=== PATIENT | male | born 1970 | race Hispanic/Latino ===

== ENCOUNTER 2023-04-04 13:43 | Inpatient (IN) | payer OTHER ==
[~2023-04-04] VITALS: Ht 177.8 cm; Wt 115.2 kg
[2023-04-04 14:40] LABS: BASOPHILS # (AUTO) 0.1 (0.0-0.1); BASOPHILS % 1.2 % (0.0-1.0); EOSINOPHILS # (AUTO) 0.1 (0.0-0.4); EOSINOPHILS % 1.1 % (0.0-6.0); HEMATOCRIT 52.1 % (38.2-49.6); HEMOGLOBIN 17.6 g/dL (14.0-18.0); LYMPHOCYTES # (AUTO) 1.4 (1.0-3.2); LYMPHOCYTES % 15.7 % (18.0-39.1); MEAN CORPUSCULAR HEMOGLOBIN 27.1 pg (28-32); MEAN CORPUSCULAR HGB CONC 33.8 g/dL (31-35); MEAN CORPUSCULAR VOLUME 80.2 fL (81-99); MONOCYTES # (AUTO) 0.8 (0.2-0.8); MONOCYTES % 8.8 % (4.4-11.3); NEUTROPHILS # (AUTO) 6.6 (2.1-6.9); NEUTROPHILS % 72.5 % (38.7-80.0); PLATELET COUNT 188 x10e3/uL (140-360); RED CELL DISTRIBUTION WIDTH 18.6 % (11.7-14.4)
[2023-04-04 14:53] LABS: ALANINE AMINOTRANSFERASE 22 IU/L (0-55); ALBUMIN 2.8 g/dL (3.5-5.0); ALBUMIN/GLOBULIN RATIO 0.5 (0.8-2.0); ALKALINE PHOSPHATASE 229 IU/L (40-150); ANION GAP 16.8 mmol/L (8-16); BLOOD UREA NITROGEN 22 mg/dL (7-26); BUN/CREATININE RATIO 18 (6-25); CALCIUM 9.1 mg/dL (8.4-10.2); CARBON DIOXIDE 31 mmol/L (22-29); CHLORIDE 89 mmol/L (98-107); CREATINE KINASE 26 IU/L (30-200); CREATININE, SERUM 1.21 mg/dL (0.72-1.25); GLUCOSE 293 mg/dL (74-118); POTASSIUM 3.8 mmol/L (3.5-5.1); SODIUM 133 mmol/L (136-145)
[2023-04-04] MEDS ORDERED: Vancomycin IV 1 GM in SODIUM CHLORIDE 0.9% 250ML 250 ML IV ONE (15:30)
[2023-04-04] MEDS ORDERED: Morphine 2mg Syringe 2 MG/ML SYR IV PRN (15:45)
[2023-04-04] MEDS ORDERED: SODIUM CHLORIDE 0.9% 1000ML 1,000 ML IV SCH (15:45)
[2023-04-04] MEDS ORDERED: ONDANSETRON HCL INJ 2MG/ML 2ML 2 MG/ML VIAL IV PRN (15:45)
[2023-04-04 16:06] VITALS: PULSE 71; RESP 20; O2SAT 98
[2023-04-04] MEDS ORDERED: ISOSORBIDE MONO30 MG PO (17:54)
[2023-04-04] MEDS ORDERED: SYNJARDY XR 121 EACH PO (17:54)
[2023-04-04] MEDS ORDERED: LISINOPRIL20 MG PO (17:54)
[2023-04-04] MEDS ORDERED: METOLAZONE5 MG PO (17:54)
[2023-04-04] MEDS ORDERED: CARVEDILOL6.25 MG PO (17:54)
[2023-04-04] MEDS ORDERED: ATORVASTATIN CA10 MG PO (17:54)
[2023-04-04] MEDS ORDERED: FUROSEMIDE40 MG PO (17:54)
[2023-04-04 17:57] VITALS: BP 119/91; PULSE 71; RESP 20; O2SAT 99
[2023-04-04 18:02] VITALS: BP 119/91; PULSE 71; RESP 20; O2SAT 99
[2023-04-04 18:03] VITALS: BP 135/97; PULSE 97; RESP 20; TEMP 97.7; O2SAT 96
[2023-04-04] MEDS ORDERED: VITAMIN D PO (18:28)
[2023-04-04 20:00] VITALS: BP 129/92; PULSE 95; RESP 16; TEMP 98.4; O2SAT 96
[2023-04-04] MEDS ORDERED: DEXTROSE 50% SYRINGE 50 ML IV PRN (21:00)
[2023-04-04] MEDS ORDERED: FAMOTIDINE 20 MG TAB PO PRN (21:45)
[2023-04-04] MEDS ORDERED: ACETAMINOPHEN 325 MG TAB PO PRN (21:45)
[2023-04-04] MEDS ORDERED: HYDRALAZINE HCL 20 MG/ML VIAL IV PRN (21:45)
[2023-04-04] MEDS ORDERED: MELATONIN 5 MG TABLET PO PRN (21:45)
[2023-04-04] MEDS ORDERED: Vancomycin IV 1.25 GM in SODIUM CHLORIDE 0.9% 250ML 250 ML IV SCH (22:00)
[2023-04-04] MEDS: CEFEPIME 2 GM in SODIUM CHLORIDE 0.9% 100 ML IV SCH (22:58)
[2023-04-04] MEDS: CARVEDILOL 12.5 MG TAB PO SCH (22:59)
[2023-04-04] MEDS: INSULIN REGULAR, HUMAN 100 UNIT/1 ML SQ SCH (23:02)
[2023-04-05] VITALS (10 sets, daily range): BP systolic 86–120; BP diastolic 57–91; PULSE 72–92; RESP 16–18; TEMP 97.4–98.4; O2SAT 95–100
[2023-04-05 04:50] LABS: BASOPHILS # (AUTO) 0.1 (0.0-0.1); EOSINOPHILS # (AUTO) 0.1 (0.0-0.4); EOSINOPHILS % 1.6 % (0.0-6.0); HEMATOCRIT 47.8 % (38.2-49.6); HEMOGLOBIN 15.8 g/dL (14.0-18.0); LYMPHOCYTES # (AUTO) 1.4 (1.0-3.2); LYMPHOCYTES % 17.2 % (18.0-39.1); MEAN CORPUSCULAR HEMOGLOBIN 26.6 pg (28-32); MEAN CORPUSCULAR HGB CONC 33.1 g/dL (31-35); MEAN CORPUSCULAR VOLUME 80.5 fL (81-99); MONOCYTES # (AUTO) 0.7 (0.2-0.8); MONOCYTES % 8.3 % (4.4-11.3); NEUTROPHILS # (AUTO) 5.8 (2.1-6.9); NEUTROPHILS % 71.3 % (38.7-80.0); PLATELET COUNT 180 x10e3/uL (140-360); RED BLOOD COUNT 5.94 x10e6/uL (4.3-5.7); RED CELL DISTRIBUTION WIDTH 18.4 % (11.7-14.4)
[2023-04-05 05:10] LABS: ALBUMIN 2.5 g/dL (3.5-5.0); ALBUMIN/GLOBULIN RATIO 0.5 (0.8-2.0); ANION GAP 15.6 mmol/L (8-16); CALCIUM 8.5 mg/dL (8.4-10.2); CREATININE, SERUM 1.12 mg/dL (0.72-1.25); POTASSIUM 3.6 mmol/L (3.5-5.1)
[2023-04-05 05:27] LABS: MAGNESIUM 1.4 MG/DL (1.3-2.1); PHOSPHORUS 3.9 MG/DL (2.3-4.7)
[2023-04-05] MEDS: Vancomycin IV 1.25 GM in SODIUM CHLORIDE 0.9% 250ML 250 ML IV SCH ×2 (06:22→18:11)
[2023-04-05] MEDS: INSULIN REGULAR, HUMAN 100 UNIT/1 ML SQ SCH ×4 (07:30→21:15)
[2023-04-05] MEDS: CEFEPIME 2 GM in SODIUM CHLORIDE 0.9% 100 ML IV SCH ×2 (08:01→21:15)
[2023-04-05] MEDS: ISOSORBIDE MONONITRATE 30 MG TAB CR PO SCH (08:01)
[2023-04-05] MEDS: SENNA-S TABLET PO SCH (08:02)
[2023-04-05] MEDS: ATORVASTATIN 10 MG TAB PO SCH (08:02)
[2023-04-05] MEDS: LISINOPRIL 20 MG TAB PO SCH (08:02)
[2023-04-05] MEDS: METOLAZONE 5 MG TAB PO SCH (08:02)
[2023-04-05] MEDS: CARVEDILOL 12.5 MG TAB PO SCH ×2 (08:05→21:16)
[2023-04-05] MEDS: ENOXAPARIN SOD INJ 40 MG/0.4 ML SYR SC SCH (17:00)
[2023-04-06] VITALS (8 sets, daily range): BP systolic 99–132; BP diastolic 66–98; PULSE 61–87; RESP 17–20; TEMP 97.7–98.6; O2SAT 96–100
[2023-04-06 04:50] LABS: BASOPHILS # (AUTO) 0.1 (0.0-0.1); BASOPHILS % 1.4 % (0.0-1.0); EOSINOPHILS # (AUTO) 0.2 (0.0-0.4); HEMATOCRIT 47.7 % (38.2-49.6); HEMOGLOBIN 15.7 g/dL (14.0-18.0); LYMPHOCYTES # (AUTO) 1.6 (1.0-3.2); MEAN CORPUSCULAR HEMOGLOBIN 26.4 pg (28-32); MEAN CORPUSCULAR HGB CONC 32.9 g/dL (31-35); MEAN CORPUSCULAR VOLUME 80.3 fL (81-99); MONOCYTES # (AUTO) 0.5 (0.2-0.8); MONOCYTES % 8.1 % (4.4-11.3); NEUTROPHILS % 62.2 % (38.7-80.0); PLATELET COUNT 156 x10e3/uL (140-360); RED BLOOD COUNT 5.94 x10e6/uL (4.3-5.7)
[2023-04-06 05:09] LABS: ALBUMIN 2.6 g/dL (3.5-5.0); ALBUMIN/GLOBULIN RATIO 0.6 (0.8-2.0); ANION GAP 15.7 mmol/L (8-16); CALCIUM 8.4 mg/dL (8.4-10.2); CREATININE, SERUM 1.29 mg/dL (0.72-1.25); POTASSIUM 3.7 mmol/L (3.5-5.1)
[2023-04-06] MEDS: Vancomycin IV 1.25 GM in SODIUM CHLORIDE 0.9% 250ML 250 ML IV SCH (07:26)
[2023-04-06] MEDS: INSULIN REGULAR, HUMAN 100 UNIT/1 ML SQ SCH ×4 (07:30→21:53)
[2023-04-06] MEDS: SENNA-S TABLET PO SCH (09:00)
[2023-04-06] MEDS: ATORVASTATIN 10 MG TAB PO SCH (09:00)
[2023-04-06] MEDS: ISOSORBIDE MONONITRATE 30 MG TAB CR PO SCH (09:00)
[2023-04-06] MEDS: LISINOPRIL 20 MG TAB PO SCH (09:00)
[2023-04-06] MEDS: METOLAZONE 5 MG TAB PO SCH (09:00)
[2023-04-06] MEDS: CARVEDILOL 12.5 MG TAB PO SCH ×2 (09:45→21:47)
[2023-04-06] MEDS: CEFEPIME 2 GM in SODIUM CHLORIDE 0.9% 100 ML IV SCH ×2 (10:13→21:45)
[2023-04-06] MEDS ORDERED: POVIDONE IODINE 0.05% 0.05 % ML PO ONE (12:03)
[2023-04-06] MEDS ORDERED: SEVOFLURANE INHAL SOLN 250 ML PEN BTL ONE (12:03)
[2023-04-06] MEDS ORDERED: KETOROLAC TROMETHAMINE 30 MG/ML VIAL ONE (12:03)
[2023-04-06] MEDS ORDERED: ETOMIDATE 2 MG/ML 10 ML INJ IV ONE (12:03)
[2023-04-06] MEDS ORDERED: METOCLOPRAMIDE HCL 10 MG/2ML VIAL ONE (12:03)
[2023-04-06] MEDS ORDERED: PROPOFOL IV EMULSION 10 MG/ML 20 ML VIAL ONE (12:03)
[2023-04-06] MEDS ORDERED: ONDANSETRON HCL INJ 2MG/ML 2ML 2 MG/ML VIAL ONE (12:03)
[2023-04-06] MEDS ORDERED: SODIUM CHLORIDE 0.9% 1000ML 1,000 ML IV SCH (12:30)
[2023-04-06] MEDS ORDERED: LIDOCAINE HCL/EPINEPHRINE/PF 10 ML VIAL ONE (14:22)
[2023-04-06] MEDS ORDERED: BUPIVACAINE 0.5%/EPI 30 ML SDV INJ ONE (14:22)
[2023-04-06] MEDS ORDERED: BUPIVACAINE HCL 0.5% INJ 30 ML VIAL INJ ONE (14:23)
[2023-04-06] MEDS ORDERED: KETAMINE 50MG/5ML SYR ONE (14:26)
[2023-04-06] MEDS: ENOXAPARIN SOD INJ 40 MG/0.4 ML SYR SC SCH (17:36)
[2023-04-06] MEDS: HYDROCODONE/APAP 7.5MG-325MG 1 EA TAB PO PRN (17:36)
[2023-04-06] MEDS: Vancomycin IV 1 GM in SODIUM CHLORIDE 0.9% 250ML 250 ML IV SCH (17:38)
[2023-04-07 00:19] VITALS: BP 108/84; PULSE 80; RESP 18; TEMP 98.3; O2SAT 98
[2023-04-07 04:43] VITALS: BP 104/80; PULSE 72; RESP 18; TEMP 97.5; O2SAT 100
[2023-04-07] MEDS: Vancomycin IV 1 GM in SODIUM CHLORIDE 0.9% 250ML 250 ML IV SCH (05:16)
[2023-04-07] MEDS: HYDROCODONE/APAP 7.5MG-325MG 1 EA TAB PO PRN (05:23)
[2023-04-07] MEDS: INSULIN REGULAR, HUMAN 100 UNIT/1 ML SQ SCH ×2 (07:30→12:08)
[2023-04-07 08:10] VITALS: BP 103/86; PULSE 70; RESP 20; TEMP 97.7; O2SAT 98
[2023-04-07] MEDS ORDERED: FUROSEMIDE 40 MG TAB PO SCH (09:00)
[2023-04-07] MEDS: CEFEPIME 2 GM in SODIUM CHLORIDE 0.9% 100 ML IV SCH (09:03)
[2023-04-07] MEDS: ISOSORBIDE MONONITRATE 30 MG TAB CR PO SCH (09:04)
[2023-04-07] MEDS: SENNA-S TABLET PO SCH (09:04)
[2023-04-07] MEDS: ATORVASTATIN 10 MG TAB PO SCH (09:04)
[2023-04-07 09:15] VITALS: BP 103/86; PULSE 70; RESP 20; TEMP 97.7; O2SAT 98
[2023-04-07 10:30] LABS: BASOPHILS # (AUTO) 0.1 (0.0-0.1); BASOPHILS % 1.6 % (0.0-1.0); EOSINOPHILS # (AUTO) 0.1 (0.0-0.4); HEMATOCRIT 50.1 % (38.2-49.6); HEMOGLOBIN 16.2 g/dL (14.0-18.0); LYMPHOCYTES # (AUTO) 1.3 (1.0-3.2); LYMPHOCYTES % 22.8 % (18.0-39.1); MEAN CORPUSCULAR HEMOGLOBIN 26.4 pg (28-32); MEAN CORPUSCULAR HGB CONC 32.3 g/dL (31-35); MEAN CORPUSCULAR VOLUME 81.7 fL (81-99); MONOCYTES # (AUTO) 0.5 (0.2-0.8); MONOCYTES % 8.2 % (4.4-11.3); NEUTROPHILS # (AUTO) 3.6 (2.1-6.9); NEUTROPHILS % 64.7 % (38.7-80.0); PLATELET COUNT 145 x10e3/uL (140-360); RED BLOOD COUNT 6.13 x10e6/uL (4.3-5.7); RED CELL DISTRIBUTION WIDTH 18.6 % (11.7-14.4)
[2023-04-07 11:21] LABS: ALBUMIN 2.6 g/dL (3.5-5.0); ALBUMIN/GLOBULIN RATIO 0.6 (0.8-2.0); ANION GAP 14.3 mmol/L (8-16); CALCIUM 8.5 mg/dL (8.4-10.2); CREATININE, SERUM 1.34 mg/dL (0.72-1.25); POTASSIUM 4.3 mmol/L (3.5-5.1)
[2023-04-07 11:42] VITALS: BP 121/95; PULSE 73; RESP 20; TEMP 97.8; O2SAT 96
[2023-04-07] MEDS ORDERED: HYDROCODON-ACE1 EA12 PO (11:48)
[2023-04-07] MEDS ORDERED: DOXYCYCLINE HY100 M3 PO (11:48)
[2023-04-07] MEDS ORDERED: CEPHALEXIN500 MG PO (11:55)
[2023-04-07] MEDS: CARVEDILOL 12.5 MG TAB PO SCH (12:08)
[2023-04-07] MEDS: LISINOPRIL 20 MG TAB PO SCH (12:08)
[2023-04-07] MEDS ORDERED: ONDANSETRON HCL 4 MG ORAL DISINTEGRATING TAB PO PRN (14:15)
[2023-04-11] MEDS ORDERED: NON-FORMULARY MEDICATION ([Vitamin D] 50,000 UNITS) PO SCH (09:00)
== END 2023-04-07 13:50 | disposition home or self-care (01) | DRG 580 ==
LOC: ER 13:59 → ERHOLD 15:46 → MED/SURG 17:52
PROVIDERS: ADMIT Family Medicine Adult Medicine; ATTEND Family Medicine Adult Medicine
PROC: 0KBT0ZZ Excision of Left Lower Leg Muscle, Open Approach (ICD-10-PCS; principal; 2023-04-06 14:35)
DX: L03.116 Cellulitis of left lower limb (principal); I50.22 Chronic systolic (congestive) heart failure; L02.416 Cutaneous abscess of left lower limb; E66.01 Morbid (severe) obesity due to excess calories; Z68.30 Body mass index [BMI] 30.0-30.9, adult; I89.0 Lymphedema, not elsewhere classified; I11.0 Hypertensive heart disease with heart failure; D17.9 Benign lipomatous neoplasm, unspecified; E78.5 Hyperlipidemia, unspecified; E11.65 Type 2 diabetes mellitus with hyperglycemia; K74.60 Unspecified cirrhosis of liver; Z20.822 Contact with and (suspected) exposure to COVID-19
CPT/HCPCS: 0223U; 36415; 76705; 80053; 80202; 82550; 82948; 83735; 83880; 84100; 84484; 85025; 86140; 87040; 87071; 87075; 87186; 87205; 93005; 94799; 99252; 99284; J0692; J1650; J1885; J2270; J2405; J2543; J2765; J7030; J7050

== ENCOUNTER → 2023-04-13 | Outpatient (CLI) | payer OTHER ==
[~2023-04-13] MED LIST: ATORVASTATIN CA10 MG PO; CARVEDILOL6.25 MG PO; CEPHALEXIN500 MG PO; DOXYCYCLINE HY100 M3 PO; FUROSEMIDE40 MG PO; HYDROCODON-ACE1 EA12 PO; ISOSORBIDE MONO30 MG PO; LISINOPRIL20 MG PO; METOLAZONE5 MG PO; SYNJARDY XR 121 EACH PO; VITAMIN D PO
== END ==
LOC: WCC 08:00
PROVIDERS: ATTEND Internal Medicine Infectious Disease
DX: T81.89XA Other complications of procedures, not elsewhere classified, initial encounter (principal); L03.116 Cellulitis of left lower limb; I87.311 Chronic venous hypertension (idiopathic) with ulcer of right lower extremity; L97.811 Non-pressure chronic ulcer of other part of right lower leg limited to breakdown of skin; S80.811A Abrasion, right lower leg, initial encounter; S80.812A Abrasion, left lower leg, initial encounter; I87.2 Venous insufficiency (chronic) (peripheral); R60.0 Localized edema

== ENCOUNTER 2023-09-26 23:07 | Inpatient (IN) | payer OTHER ==
[~2023-09-26] VITALS: Ht 177.8 cm; Wt 122.5 kg
[2023-09-27] VITALS (12 sets, daily range): BP systolic 92–127; BP diastolic 69–96; PULSE 64–116; RESP 16–20; TEMP 97.5–97.8; O2SAT 95–100
[2023-09-27 00:08] LABS: BASOPHILS # (AUTO) 0.1 (0.0-0.1); BASOPHILS % 1.3 % (0.0-1.0); EOSINOPHILS # (AUTO) 0.1 (0.0-0.4); EOSINOPHILS % 0.9 % (0.0-6.0); HEMATOCRIT 53.4 % (38.2-49.6); HEMOGLOBIN 17.4 g/dL (14.0-18.0); LYMPHOCYTES # (AUTO) 1.3 (1.0-3.2); LYMPHOCYTES % 14.5 % (18.0-39.1); MEAN CORPUSCULAR HEMOGLOBIN 26.6 pg (28-32); MEAN CORPUSCULAR HGB CONC 32.6 g/dL (31-35); MEAN CORPUSCULAR VOLUME 81.8 fL (81-99); MONOCYTES # (AUTO) 0.7 (0.2-0.8); NEUTROPHILS # (AUTO) 6.5 (2.1-6.9); PLATELET COUNT 170 x10e3/uL (140-360); RED BLOOD COUNT 6.53 x10e6/uL (4.3-5.7); WHITE BLOOD COUNT 8.62 x10e3/uL (4.8-10.8)
[2023-09-27 00:49] LABS: ALBUMIN/GLOBULIN RATIO 0.7 (0.8-2.0); ANION GAP 18.5 mmol/L (8-16); BILIRUBIN,TOTAL 3.6 mg/dL (0.2-1.2); CREATININE, SERUM 2.02 mg/dL (0.72-1.25); POTASSIUM 4.5 mmol/L (3.5-5.1); TOTAL PROTEIN 7.5 g/dL (6.5-8.1)
[2023-09-27 01:07] LABS: TROPONIN I 0.057 ng/mL (0-0.300)
[2023-09-27] MEDS ORDERED: SODIUM CHLORIDE FLUSH 10 ML SYR INJ PRN (01:30)
[2023-09-27] MEDS ORDERED: ONDANSETRON HCL INJ 2MG/ML 2ML 2 MG/ML VIAL IV PRN (01:30)
[2023-09-27] MEDS ORDERED: Morphine 4mg INJECTION 4 MG/ML INJ IV PRN (01:30)
[2023-09-27] MEDS: FUROSEMIDE INJ 10 MG/ML 4 ML VIAL IV SCH ×4 (02:35→22:01)
[2023-09-27] MEDS ORDERED: POLYETHYLENE GLYCOL 3350 17 GM PACK PO PRN (08:00)
[2023-09-27] MEDS ORDERED: HYDRALAZINE HCL 20 MG/ML VIAL IV PRN (08:00)
[2023-09-27 09:14] LABS: TROPONIN I 0.045 ng/mL (0-0.300)
[2023-09-27] MEDS ORDERED: ENTRESTO 24 MG1 EACH PO (11:00)
[2023-09-27] MEDS ORDERED: ASPIRIN EC81 MG PO (11:00)
[2023-09-27] MEDS ORDERED: CLOPIDOGREL75 MG PO (12:11)
[2023-09-27] MEDS: DOCUSATE SODIUM 100 MG CAP PO SCH ×2 (12:13→17:23)
[2023-09-27 16:50] LABS: TROPONIN I 0.055 ng/mL (0-0.300)
[2023-09-27] MEDS: SACUBITRIL/VALSARTAN 24MG/26MG 1 EA TAB PO SCH (17:23)
[2023-09-27] MEDS: FAMOTIDINE 20 MG TAB PO SCH (17:23)
[2023-09-27] MEDS: CARVEDILOL 3.125 MG TAB PO SCH (17:24)
[2023-09-27] MEDS: CEFTRIAXONE 2 GM in SODIUM CHLORIDE 0.9% 100 ML IV SCH (17:43)
[2023-09-28] VITALS (10 sets, daily range): BP systolic 70–142; BP diastolic 54–85; PULSE 63–86; RESP 16–18; TEMP 97.3–97.9; O2SAT 93–100
[2023-09-28] MEDS: ACETAMINOPHEN 325 MG TAB PO PRN ×2 (01:55→09:31)
[2023-09-28 06:00] LABS: BASOPHILS # (AUTO) 0.1 (0.0-0.1); BASOPHILS % 1.9 % (0.0-1.0); EOSINOPHILS # (AUTO) 0.1 (0.0-0.4); EOSINOPHILS % 2.2 % (0.0-6.0); HEMATOCRIT 51.3 % (38.2-49.6); HEMOGLOBIN 17.3 g/dL (14.0-18.0); LYMPHOCYTES # (AUTO) 1.2 (1.0-3.2); LYMPHOCYTES % 20.2 % (18.0-39.1); MEAN CORPUSCULAR HEMOGLOBIN 26.7 pg (28-32); MEAN CORPUSCULAR HGB CONC 33.7 g/dL (31-35); MEAN CORPUSCULAR VOLUME 79.2 fL (81-99); MONOCYTES # (AUTO) 0.5 (0.2-0.8); MONOCYTES % 8.9 % (4.4-11.3); NEUTROPHILS # (AUTO) 3.9 (2.1-6.9); NEUTROPHILS % 66.5 % (38.7-80.0); PLATELET COUNT 146 x10e3/uL (140-360); RED BLOOD COUNT 6.48 x10e6/uL (4.3-5.7); RED CELL DISTRIBUTION WIDTH 17.8 % (11.7-14.4); WHITE BLOOD COUNT 5.84 x10e3/uL (4.8-10.8)
[2023-09-28 06:09] LABS: INR 1.52; PROTHROMBIN TIME 18.6 seconds (11.9-14.5)
[2023-09-28] MEDS: FUROSEMIDE INJ 10 MG/ML 4 ML VIAL IV SCH ×2 (06:27→17:00)
[2023-09-28 06:34] LABS: ALBUMIN 2.6 g/dL (3.5-5.0); ALBUMIN/GLOBULIN RATIO 0.6 (0.8-2.0); BILIRUBIN,TOTAL 2.7 mg/dL (0.2-1.2); CALCIUM 8.5 mg/dL (8.4-10.2); CREATININE, SERUM 2.15 mg/dL (0.72-1.25)
[2023-09-28 07:15] LABS: CHOL/HDL RATIO 6.4 (3.9-4.7); MAGNESIUM 1.8 MG/DL (1.3-2.1); PHOSPHORUS 5.1 MG/DL (2.3-4.7)
[2023-09-28 07:23] LABS: TROPONIN I 0.039 ng/mL (0-0.300)
[2023-09-28 07:56] LABS: FREE T4 (FREE THYROXINE) 1.02 ng/dL (0.8-1.8); THYROID STIMULATING HORMONE 2.325 uIU/mL (0.350-4.940)
[2023-09-28] MEDS: FAMOTIDINE 20 MG TAB PO SCH ×2 (08:31→17:29)
[2023-09-28 08:53] LABS: BILIRUBIN,DIRECT 1.8 mg/dL (0.0-0.5); BILIRUBIN,INDIRECT 0.9 mg/dL (0.3-1.2); BILIRUBIN,TOTAL 2.7 mg/dL (0.2-1.2)
[2023-09-28] MEDS: CEFTRIAXONE 2 GM in SODIUM CHLORIDE 0.9% 100 ML IV SCH (09:30)
[2023-09-28] MEDS: DOCUSATE SODIUM 100 MG CAP PO SCH ×2 (09:30→17:29)
[2023-09-28] MEDS: SACUBITRIL/VALSARTAN 24MG/26MG 1 EA TAB PO SCH ×2 (09:30→17:00)
[2023-09-28] MEDS: CARVEDILOL 3.125 MG TAB PO SCH ×2 (09:31→17:00)
[2023-09-28] MEDS ORDERED: ONDANSETRON HCL 4 MG ORAL DISINTEGRATING TAB PO PRN (10:45)
[2023-09-28] MEDS ORDERED: METOLAZONE 5 MG TAB PO ONE (12:00)
[2023-09-28] MEDS ORDERED: FUROSEMIDE INJ 10 MG/ML 4 ML VIAL IV ONE (12:30)
[2023-09-28] MEDS: CLOPIDOGREL BISULFATE 75 MG TAB PO SCH (12:39)
[2023-09-28] MEDS: HEPARIN SOD (PORCINE) 5,000 UNIT/ML VIAL SC SCH (20:42)
[2023-09-29] VITALS (8 sets, daily range): BP systolic 96–110; BP diastolic 61–89; PULSE 72–88; RESP 18–20; TEMP 96–98.2; O2SAT 95–100
[2023-09-29 06:33] LABS: ALBUMIN 2.6 g/dL (3.5-5.0); ALBUMIN/GLOBULIN RATIO 0.7 (0.8-2.0); ANION GAP 17.7 mmol/L (8-16); BILIRUBIN,TOTAL 2.4 mg/dL (0.2-1.2); CALCIUM 8.7 mg/dL (8.4-10.2); CREATININE, SERUM 2.15 mg/dL (0.72-1.25); POTASSIUM 3.7 mmol/L (3.5-5.1); TOTAL PROTEIN 6.6 g/dL (6.5-8.1)
[2023-09-29] MEDS: ACETAMINOPHEN 325 MG TAB PO PRN ×2 (07:22→18:07)
[2023-09-29] MEDS: CARVEDILOL 3.125 MG TAB PO SCH ×2 (09:00→16:43)
[2023-09-29] MEDS: SACUBITRIL/VALSARTAN 24MG/26MG 1 EA TAB PO SCH ×2 (09:00→16:43)
[2023-09-29] MEDS: FUROSEMIDE INJ 10 MG/ML 4 ML VIAL IV SCH ×2 (09:02→16:42)
[2023-09-29] MEDS: FAMOTIDINE 20 MG TAB PO SCH ×2 (09:02→16:42)
[2023-09-29] MEDS: CEFTRIAXONE 2 GM in SODIUM CHLORIDE 0.9% 100 ML IV SCH (09:03)
[2023-09-29] MEDS: DOCUSATE SODIUM 100 MG CAP PO SCH ×2 (09:03→16:42)
[2023-09-29] MEDS: CLOPIDOGREL BISULFATE 75 MG TAB PO SCH (09:03)
[2023-09-29] MEDS: HEPARIN SOD (PORCINE) 5,000 UNIT/ML VIAL SC SCH ×2 (09:05→20:44)
[2023-09-30] VITALS: BP 117/90; PULSE 76; RESP 20; TEMP 97.6; O2SAT 92
[2023-09-30 07:48] LABS: BASOPHILS # (AUTO) 0.1 (0.0-0.1); BASOPHILS % 1.9 % (0.0-1.0); EOSINOPHILS # (AUTO) 0.1 (0.0-0.4); EOSINOPHILS % 1.6 % (0.0-6.0); HEMATOCRIT 54.8 % (38.2-49.6); HEMOGLOBIN 18.4 g/dL (14.0-18.0); LYMPHOCYTES # (AUTO) 1.4 (1.0-3.2); MEAN CORPUSCULAR HEMOGLOBIN 26.7 pg (28-32); MEAN CORPUSCULAR HGB CONC 33.6 g/dL (31-35); MEAN CORPUSCULAR VOLUME 79.5 fL (81-99); MONOCYTES # (AUTO) 0.8 (0.2-0.8); MONOCYTES % 11.3 % (4.4-11.3); NEUTROPHILS # (AUTO) 4.4 (2.1-6.9); NEUTROPHILS % 64.6 % (38.7-80.0); PLATELET COUNT 146 x10e3/uL (140-360); RED BLOOD COUNT 6.89 x10e6/uL (4.3-5.7); RED CELL DISTRIBUTION WIDTH 18.2 % (11.7-14.4); WHITE BLOOD COUNT 6.81 x10e3/uL (4.8-10.8)
[2023-09-30 08:10] LABS: ANION GAP 19.2 mmol/L (8-16); CALCIUM 9.3 mg/dL (8.4-10.2); CREATININE, SERUM 2.37 mg/dL (0.72-1.25); POTASSIUM 4.2 mmol/L (3.5-5.1)
[2023-09-30 09:00] VITALS: BP 114/91; PULSE 81; RESP 19; TEMP 97.9; O2SAT 95
[2023-09-30 09:03] VITALS: BP 114/91; PULSE 81; RESP 19; TEMP 97.9; O2SAT 95
[2023-09-30] MEDS: FAMOTIDINE 20 MG TAB PO SCH ×2 (09:12→16:51)
[2023-09-30] MEDS: DOCUSATE SODIUM 100 MG CAP PO SCH ×2 (09:12→16:51)
[2023-09-30] MEDS: FUROSEMIDE INJ 10 MG/ML 4 ML VIAL IV SCH ×2 (09:12→16:51)
[2023-09-30] MEDS: SACUBITRIL/VALSARTAN 24MG/26MG 1 EA TAB PO SCH ×2 (09:12→16:51)
[2023-09-30] MEDS: CLOPIDOGREL BISULFATE 75 MG TAB PO SCH (09:13)
[2023-09-30] MEDS: CEFTRIAXONE 2 GM in SODIUM CHLORIDE 0.9% 100 ML IV SCH (09:13)
[2023-09-30] MEDS: CARVEDILOL 3.125 MG TAB PO SCH ×2 (09:13→16:51)
[2023-09-30] MEDS: HEPARIN SOD (PORCINE) 5,000 UNIT/ML VIAL SC SCH ×2 (09:32→21:37)
[2023-09-30] MEDS: ACETAMINOPHEN 325 MG TAB PO PRN (09:33)
[2023-09-30 16:56] VITALS: BP 96/75; PULSE 80; RESP 20; TEMP 98; O2SAT 97
[2023-09-30 20:00] VITALS: BP 88/67; PULSE 95; RESP 20; TEMP 96.4; O2SAT 100
[2023-09-30 23:11] LABS: CLARITY,URINE CLEAR (CLEAR); COLOR,URINE YELLOW (YELLOW); LEUKOCYTE ESTERASE ,URINE NEGATIVE (NEGATIVE); NITRITE,URINE NEGATIVE (NEGATIVE); PH,URINE 7 (5 - 7)
[2023-09-30 23:12] LABS: BILIRUBIN,URINE NEGATIVE (NEGATIVE); GLUCOSE, URINE NEGATIVE (NEGATIVE); KETONES,URINE NEGATIVE (NEGATIVE); PROTEIN,URINE DIPSTICK NEGATIVE (NEGATIVE); URINE UROBILINOGEN 1 mg/dL (0.2 - 1)
[2023-09-30 23:20] LABS: BACTERIA,URINE FEW /HPF; EPITHELIAL CELLS,URINE FEW /LPF; MUCUS,URINE MODERATE (RARE); RBC,URINE 0-5 /HPF (0-5); WBC,URINE (MAN) 0-5 /HPF (0-5)
[2023-09-30 23:35] LABS: TOTAL PROTEIN, URINE < 6.8 mg/dL (1-14)
[2023-09-30 23:36] LABS: CREATININE,URINE RANDOM 23.06 mg/dL (63-166)
[2023-10-01] VITALS: BP 94/75; PULSE 71; RESP 20; TEMP 97.2; O2SAT 98
[2023-10-01 04:00] VITALS: BP 94/75; PULSE 71; RESP 20; TEMP 97.2; O2SAT 98
[2023-10-01 07:21] LABS: BASOPHILS # (AUTO) 0.1 (0.0-0.1); BASOPHILS % 1.4 % (0.0-1.0); EOSINOPHILS # (AUTO) 0.1 (0.0-0.4); EOSINOPHILS % 1.8 % (0.0-6.0); HEMATOCRIT 50.3 % (38.2-49.6); HEMOGLOBIN 16.8 g/dL (14.0-18.0); LYMPHOCYTES # (AUTO) 1.1 (1.0-3.2); LYMPHOCYTES % 13.4 % (18.0-39.1); MEAN CORPUSCULAR HEMOGLOBIN 26.3 pg (28-32); MEAN CORPUSCULAR HGB CONC 33.4 g/dL (31-35); MEAN CORPUSCULAR VOLUME 78.8 fL (81-99); MONOCYTES # (AUTO) 0.7 (0.2-0.8); MONOCYTES % 8.9 % (4.4-11.3); NEUTROPHILS # (AUTO) 5.9 (2.1-6.9); NEUTROPHILS % 74.1 % (38.7-80.0); PLATELET COUNT 148 x10e3/uL (140-360); RED BLOOD COUNT 6.38 x10e6/uL (4.3-5.7); RED CELL DISTRIBUTION WIDTH 17.9 % (11.7-14.4); WHITE BLOOD COUNT 7.94 x10e3/uL (4.8-10.8)
[2023-10-01 07:53] LABS: ALBUMIN 2.7 g/dL (3.5-5.0); ALBUMIN/GLOBULIN RATIO 0.6 (0.8-2.0); ANION GAP 19.6 mmol/L (8-16); BILIRUBIN,TOTAL 2.2 mg/dL (0.2-1.2); CALCIUM 8.8 mg/dL (8.4-10.2); CREATININE, SERUM 2.03 mg/dL (0.72-1.25); POTASSIUM 3.6 mmol/L (3.5-5.1); TOTAL PROTEIN 7.2 g/dL (6.5-8.1)
[2023-10-01 08:43] VITALS: BP 129/87; PULSE 76; RESP 20; TEMP 98; O2SAT 98
[2023-10-01 09:00] VITALS: BP 129/87; PULSE 76; RESP 20; TEMP 98; O2SAT 98
[2023-10-01] MEDS: FAMOTIDINE 20 MG TAB PO SCH (09:25)
[2023-10-01] MEDS: CLOPIDOGREL BISULFATE 75 MG TAB PO SCH (09:25)
[2023-10-01] MEDS: SACUBITRIL/VALSARTAN 24MG/26MG 1 EA TAB PO SCH (09:25)
[2023-10-01] MEDS: DOCUSATE SODIUM 100 MG CAP PO SCH (09:26)
[2023-10-01] MEDS: CARVEDILOL 3.125 MG TAB PO SCH (09:26)
[2023-10-01] MEDS: FUROSEMIDE INJ 10 MG/ML 4 ML VIAL IV SCH (09:27)
[2023-10-01] MEDS: CEFTRIAXONE 2 GM in SODIUM CHLORIDE 0.9% 100 ML IV SCH (09:27)
[2023-10-01] MEDS ORDERED: HYDROCODONE PO ONE (09:45)
[2023-10-01] MEDS ORDERED: APAP PO ONE (09:45)
[2023-10-01] MEDS ORDERED: HYDROCODONE PO PRN (09:45)
[2023-10-01] MEDS ORDERED: APAP PO PRN (09:45)
[2023-10-01] MEDS ORDERED: CEPHALEXIN500 M1 PO (09:47)
[2023-10-01] MEDS ORDERED: ACETAMINOPHEN325 M1 PO (09:47)
[2023-10-01] MEDS ORDERED: ONDANSETRON ODT4 MG PO (09:47)
[2023-10-01] MEDS ORDERED: LASIX80 MG PO (09:47)
[2023-10-01] MEDS: HEPARIN SOD (PORCINE) 5,000 UNIT/ML VIAL SC SCH (10:11)
[2023-10-01] MEDS ORDERED: HYDROCODONE/APAP 10MG-325MG TAB PO PRN (10:30)
[2023-10-01] MEDS ORDERED: HYDROCODONE/APAP 10MG-325MG TAB PO ONE (11:00)
[2023-10-01 12:06] VITALS: BP 104/78; PULSE 104; RESP 19; O2SAT 97
[2023-10-03 10:26] LABS: HEPATITIS B SURFACE AG (P) Negative
[2023-10-03 10:27] LABS: HEPATITIS C ANTIBODY Non Reactive
== END 2023-10-01 13:23 | disposition home or self-care (01) | DRG 291 ==
LOC: ER 23:11 → ERHOLD 09-27 01:29 → MED/SURG3 09-27 03:59
PROVIDERS: ADMIT Internal Medicine; ATTEND Internal Medicine
DX: I13.0 Hypertensive heart and chronic kidney disease with heart failure and stage 1 through stage 4 chronic kidney disease, or unspecified chronic kidney disease (principal); I50.23 Acute on chronic systolic (congestive) heart failure; N17.0 Acute kidney failure with tubular necrosis; E87.1 Hypo-osmolality and hyponatremia; L03.116 Cellulitis of left lower limb; L03.115 Cellulitis of right lower limb; L97.929 Non-pressure chronic ulcer of unspecified part of left lower leg with unspecified severity; L97.919 Non-pressure chronic ulcer of unspecified part of right lower leg with unspecified severity; I45.2 Bifascicular block; E87.20 Acidosis, unspecified; I87.8 Other specified disorders of veins; N18.30 Chronic kidney disease, stage 3 unspecified; E11.22 Type 2 diabetes mellitus with diabetic chronic kidney disease; E78.5 Hyperlipidemia, unspecified; I45.10 Unspecified right bundle-branch block; Z11.52 Encounter for screening for COVID-19; I25.10 Atherosclerotic heart disease of native coronary artery without angina pectoris; G47.33 Obstructive sleep apnea (adult) (pediatric); I50.810 Right heart failure, unspecified; E66.01 Morbid (severe) obesity due to excess calories; D17.9 Benign lipomatous neoplasm, unspecified; E11.69 Type 2 diabetes mellitus with other specified complication; Z68.38 Body mass index [BMI] 38.0-38.9, adult; E11.622 Type 2 diabetes mellitus with other skin ulcer; E11.65 Type 2 diabetes mellitus with hyperglycemia; K74.60 Unspecified cirrhosis of liver; Z79.82 Long term (current) use of aspirin
CPT/HCPCS: 36415; 36600; 71045; 76705; 76770; 80048; 80053; 80061; 81001; 82248; 82550; 82570; 82948; 83036; 83690; 83735; 83880; 84100; 84155; 84156; 84439; 84443; 84484; 85025; 85610; 87040; 93005; 93306; 94799; 99252; 99284; J0696; J1644; J1940; J2543; J7050; U0002